=== PATIENT | female | born 1960 | race Caucasian/White ===

== ENCOUNTER 2022-10-09 15:04 | Outpatient (CLI) | payer OTHER, SELFPAY | END 2022-10-09 15:05 | disposition home or self-care (01) | PROVIDERS: PCP Family Medicine; Visit Provider Family Medicine | DX: R03.0 Elevated blood-pressure reading, without diagnosis of hypertension (principal); Z13.6 Encounter for screening for cardiovascular disorders | CPT/HCPCS: 80048; 80061 ==

== ENCOUNTER 2023-01-15 14:14 | Outpatient (CLI) | payer OTHER, SELFPAY | END 2023-01-15 14:15 | disposition home or self-care (01) | LOC: NFLDREF 14:14 | PROVIDERS: PCP Family Medicine; Visit Provider Family Medicine | DX: I10 Essential (primary) hypertension (principal) | CPT/HCPCS: 80048 ==

== ENCOUNTER 2023-10-11 14:41 | Outpatient (CLI) | payer OTHER, SELFPAY | END 2023-10-11 14:42 | disposition home or self-care (01) | LOC: NFLDUCREF 14:41 | PROVIDERS: PCP Family Medicine; Visit Provider Nurse Practitioner | DX: L02.91 Cutaneous abscess, unspecified (principal); B95.7 Other staphylococcus as the cause of diseases classified elsewhere | CPT/HCPCS: 87070; 87186 ==

== ENCOUNTER 2024-03-29 10:50 | Outpatient (CLI) | payer OTHER, SELFPAY | END 2024-03-29 10:51 | disposition home or self-care (01) | PROVIDERS: PCP Family Medicine; Visit Provider Family Medicine | DX: I10 Essential (primary) hypertension (principal) | CPT/HCPCS: 80048; 80061 ==

== ENCOUNTER 2024-09-19 12:09 | Outpatient (CLI) | payer OTHER, SELFPAY ==
--- NOTE | 2024-09-19 13:22 | P.ANES_ITS ---
Anesthesia Charges Start Date/Time Anesthesia Start Date: 09/19/24 Anesthesia Start Time: 13:12 Stop Date/Time Anesthesia Stop Date: 09/19/24 Anesthesia Stop Time: 13:54 Coding CPT Codes CPT Codes: ANES UPR LWR GI NDSC PX - 20651 ([id number]) P2 - PATIENT W/MILD SYST DISEASE, QK - STRINGS TEACHER 2-4 CNCRNT ANES PROC, QX - UTILITY WORKER PRODUCTION SVC W/ MD MED DIRECTION
--- NOTE | 2024-09-19 13:22 | W.ANESCHARGE ---
Anesthesia Charges Start Date/Time Anesthesia Start Date: 09/19/24 Anesthesia Start Time: 13:12 Stop Date/Time Anesthesia Stop Date: 09/19/24 Anesthesia Stop Time: 13:54 Coding CPT Codes CPT Codes: ANES UPR LWR GI NDSC PX - 63870 ([id number]) P2 - PATIENT W/MILD SYST DISEASE, QK - SLUNK SKINNER 2-4 CNCRNT ANES PROC, QX - IRONING WORKER SVC W/ MD MED DIRECTION
--- NOTE | 2024-09-19 13:58 | P.ANES_ITS ---
Anesthesia Charges Start Date/Time Anesthesia Start Date: 09/19/24 Anesthesia Start Time: 13:12 Stop Date/Time Anesthesia Stop Date: 09/19/24 Anesthesia Stop Time: 13:54 Coding CPT Codes CPT Codes: ANES UPR LWR GI NDSC PX - 62220 ([id number]) P2 - PATIENT W/MILD SYST DISEASE, QX - SWITCH ADJUSTER SVC W/ MD MED DIRECTION, QK - CUTTING MACHINE TENDER HELPER 2-4 CNCRNT ANES PROC
--- NOTE | 2024-09-19 13:58 | W.ANESCHARGE ---
Anesthesia Charges Start Date/Time Anesthesia Start Date: 09/19/24 Anesthesia Start Time: 13:12 Stop Date/Time Anesthesia Stop Date: 09/19/24 Anesthesia Stop Time: 13:54 Coding CPT Codes CPT Codes: ANES UPR LWR GI NDSC PX - 24787 ([id number]) P2 - PATIENT W/MILD SYST DISEASE, QX - CASHIER CHECKER SVC W/ MD MED DIRECTION, QK - INK PRINTER 2-4 CNCRNT ANES PROC
== END 2024-09-19 12:10 | disposition home or self-care (01) ==
LOC: OP CLINIC 12:11
PROVIDERS: PCP Family Medicine; Visit Provider Surgery
DX: Z12.11 Encounter for screening for malignant neoplasm of colon (principal); D12.8 Benign neoplasm of rectum; K57.30 Diverticulosis of large intestine without perforation or abscess without bleeding; R10.13 Epigastric pain; K44.9 Diaphragmatic hernia without obstruction or gangrene
CPT/HCPCS: 00813; 43239; 45385; 88305; J2704; J3490